=== PATIENT | male | born 1960 | race Caucasian/White ===

== ENCOUNTER 2018-05-27 21:35 | Emergency (ER) | payer MEDICARE, MEDICAID ==
[2018-05-27 23:33] VITALS: BP 128/77
--- NOTE | 2018-05-27 23:55 | EDM.PDOC ---
ED HPI GENERAL MEDICAL PROBLEM - General Chief Complaint: Lower Extremity Injury/Pain Stated Complaint: KNEE HURTS NOT AN ACCIDENT Time Seen by Provider: 05/27/18 23:49 Source of Information: Reports: Patient, Family, RN Notes Reviewed History Limitations: Reports: No Limitations - History of Present Illness INITIAL COMMENTS - FREE TEXT/NARRATIVE: 57-year-old gentleman presents emergency department today complaint of left knee pain, he thinks he may have injured himself when he stood up from the couch and twisted sudden onset of pain now difficult to bear weight, he does have some swelling around the knee no redness Treatments [employer] 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: Reports: Other (see below) 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 - Related Data Allergies Allergy/AdvReac Type Severity Reaction Status Date / Time No Known Allergies Allergy Verified 05/27/18 23:37 Home Meds: Home Meds NK [No Known Home Meds] 05/27/18 [History] Past Medical History Gastrointestinal History: Reports: Other (See Below) Other Gastrointestinal History: ulcers - Infectious Disease History Infectious Disease History: Reports: Chicken Pox - Past Surgical History Musculoskeletal Surgical History: Reports: Other (See Below) Other Musculoskeletal Surgeries/Procedures:: wrist surgery Social & Family History - Tobacco Use Smoking Status *Q: Current Every Day Smoker Years of Tobacco use: 40 Packs/Tins Daily: 1.5 Second Hand Smoke Exposure: Yes - Caffeine Use Caffeine Use: Reports: Coffee - Recreational Drug Use Recreational Drug Use: No Review of Systems - Review of Systems Review Of Systems: See Below Musculoskeletal: Reports: Joint Pain (Left knee) Skin: Reports: No Symptoms ED EXAM, GENERAL - Physical Exam Exam: See Below Free Text/Narrative:: Examination of the left knee I do appreciate some edema around the knee there is no erythema noted he is tender along the medial joint line no lateral joint line tenderness both Sidhu and valgus maneuvers do elicit pain Bi's is negative anterior drawer is negative Exam Limited By: No Limitations General Appearance: Alert, WD/WN, No Apparent Distress Respiratory/Chest: No Respiratory Distress Course - Vital Signs Last Recorded V/S: Last Vital Signs Temp 96.8 F 05/27/18 23:32 Pulse 76 05/27/18 23:32 Resp 18 05/27/18 23:32 BP 128/77 05/27/18 23:32 Pulse Ox 96 02/22/19 23:32 Departure - Departure Time of Disposition: 00:50 Disposition: Home, Self-Care 01 Condition: Fair Clinical Impression: Strain of right knee Qualifiers: Encounter type: initial encounter Qualified Code(s): S86.911A - Strain of unspecified muscle(s) and tendon(s) at lower leg level, right leg, initial encounter - Discharge Information Referrals: PCP,None [Primary Care Provider] - Forms: ED Department Discharge Additional Instructions: Use ibuprofen for baseline pain control, use hydrocodone for breakthrough pain, Please followup with your primary care provider in 3-5 days if not better, please call return to the emergency department with worsening of symptoms. - Assessment/Plan Plan: Assessment Acuity = acute Site and laterality = right knee strain Etiology = probably secondary to twisting injury Manifestations = none Location of injury = Home Lab values = knee x-ray is negative Plan Plan to use Tylenol or ibuprofen as needed for pain control follow-up primary care 3-5 days for reevaluation , prescription written for hydrocodone 5/325 one tablet by mouth 3 times a day when necessary for 10 This note was dictated using [employer] voice recognition software please call with any questions on syntax or grammar.
--- NOTE | 2018-05-28 00:43 | CRLCR ---
Indication: Pain after twisting knee Technique: Four views right knee Comparison: None Findings: Bones: Alignment is normal. No fractures or bone lesions. Joint spaces: Very mild tricompartmental degenerative changes. Soft tissues: Unremarkable. Impression: No acute abnormality. Dictated by Jennifer Leong MD @ May 28 2018 12:39AM Signed by Dr. Jennifer Leong @ May 28 2018 12:41AM
== END 2018-05-28 01:05 | disposition home or self-care (01) ==
LOC: JP.ED 21:35
DX: S86.911A Strain of unspecified muscle(s) and tendon(s) at lower leg level, right leg, initial encounter (principal); F17.210 Nicotine dependence, cigarettes, uncomplicated; X50.1XXA Overexertion from prolonged static or awkward postures, initial encounter
CPT/HCPCS: 73562-RT; 99284

== ENCOUNTER 2020-04-02 15:32 | Emergency (ER) | payer MEDICARE, MEDICAID ==
[2020-04-02] MEDS ORDERED: Albuterol/Ipratropium 3.0-0.5 MG/3 ML Neb Soln NEB ONE (16:09)
[2020-04-02 16:30] VITALS: BP 98/59; PULSE 85
--- NOTE | 2020-04-02 16:32 | EDM.PDOC ---
ED HPI GENERAL MEDICAL PROBLEM - General Chief Complaint: Respiratory Problem Stated Complaint: SHORT OF BREATH Time Seen by Provider: 04/02/20 16:00 Source of Information: Reports: Patient History Limitations: Reports: No Limitations - History of Present Illness INITIAL COMMENTS - FREE TEXT/NARRATIVE: 59-year-old male, chronic smoker with likely COPD, arrives with shortness of breath and cough for the past month. He is also very anxious because he recently lost his to COPD. He claims he stopped smoking 3 weeks ago. He has a persistent productive cough but no fevers or chills. He presents somewhat hyperventilating and anxious, O2 sats are 98 to 100%. He has no pulmonary medications at home. He does not have a primary doctor, in fact he is on no medications at all. Onset: Gradual Duration: Week(s): (4 weeks of symptoms) Location: Reports: Chest Associated Symptoms: Reports: Cough, Malaise, Shortness of Breath. Denies: Fever/Chills, Headaches Right Back Pain Score (Numeric/FACES): 8 - Related Data Allergies Allergy/AdvReac Type Severity Reaction Status Date / Time No Known Allergies Allergy Verified 05/27/18 23:37 Home Meds: Home Meds NK [No Known Home Meds] 05/27/18 [History] Past Medical History Gastrointestinal History: Reports: Other (See Below) Other Gastrointestinal History: ulcers - Infectious Disease History Infectious Disease History: Reports: Chicken Pox - Past Surgical History Musculoskeletal Surgical History: Reports: Other (See Below) Other Musculoskeletal Surgeries/Procedures:: wrist surgery Social & Family History - Tobacco Use Tobacco Use Status *Q: Former Tobacco User Used Tobacco, but Quit: Yes Month/Year Tobacco Last Used: - Caffeine Use Caffeine Use: Reports: Coffee - Recreational Drug Use Recreational Drug Use: Yes Drug Use in Last 12 Months: Yes Recreational Drug Type: Reports: Marijuana/Hashish Recreational Drug Use Frequency: Weekly ED ROS GENERAL - Review of Systems Review Of Systems: See Below Constitutional: Reports: Malaise. Denies: Fever, Chills HEENT: Denies: Throat Pain Respiratory: Reports: Shortness of Breath, Wheezing, Cough, Sputum Cardiovascular: Denies: Chest Pain GI/Abdominal: Reports: Abdominal Pain (Abdominal muscles are hurting from coughing so much) Skin: Reports: No Symptoms Neurological: Reports: Dizziness. Denies: Headache, Weakness Psychiatric: Reports: Anxiety, Depression (Experiencing some reactive depression due to the loss of his ) ED EXAM, GENERAL - Physical Exam Exam: See Below Exam Limited By: No Limitations General Appearance: Alert, Anxious, Mild Distress (Appears short of breath but his vitals are excellent, appears to be hyperventilating) Head: Atraumatic Respiratory/Chest: Respiratory Distress (Mild respiratory distress with increased effort, a few scattered expiratory wheezes are heard bilaterally), Rales (A few perihilar rales are heard, especially on the right posterior lung restrepo) Cardiovascular: Regular Rate, Rhythm. No: Tachycardia Extremities: Normal Inspection. No: Pedal Edema Neurological: Alert, Oriented Psychiatric: Anxious Course - Vital Signs Last Recorded V/S: Last Vital Signs Temp 97.5 F 04/02/20 15:42 Pulse 85 04/02/20 16:29 Resp 22 H 04/02/20 15:42 BP 98/59 L 04/02/20 16:29 Pulse Ox 98 04/02/20 15:42 - Orders/Labs/Meds Orders: Active Orders 24 hr Category Date Time Status Chest 2V [CR] Routine Exams 04/02/20 16:09 Taken Meds: Medications Discontinued Medications Generic Name Dose Route Start Last Admin Trade Name Freq PRN Reason Stop Dose Admin Albuterol/Ipratropium 3 ml 04/02/20 16:09 04/02/20 16:16 Duoneb 3.0-0.5 Mg/3 Ml NEB 04/02/20 16:10 3 ml ONETIME ONE Administration - Re-Assessments/Exams Free Text/Narrative Re-Assessment/Exam: 04/02/20 16:32 Patient was given a DuoNeb and then a 2 view chest x-ray will be obtained. 04/02/20 16:47 Patient had some perceived subjective improvement after the DuoNeb. Chest x-ray shows a right perihilar infiltrate, possibly underlying mass-effect. He will be placed on Levaquin 500 mg daily for the next 10 days, 60 mg of prednisone a day for 5 days and a hand-held albuterol metered-dose inhaler. It is very important for him to recheck in 7 to 14 days, he will need a follow-up chest x- ray and possibly a chest CT especially if not improving satisfactorily. Departure - Departure Time of Disposition: 17:04 Disposition: Home, Self-Care 01 Clinical Impression: Pneumonia involving left lung Qualifiers: Pneumonia type: due to unspecified organism Lung location: unspecified part of lung Qualified Code(s): J18.9 - Pneumonia, unspecified organism - Discharge Information Instructions: Community-Acquired Pneumonia, Adult, [place] Referrals: PCP,None [Primary Care Provider] - Forms: ED Department Discharge Care Plan Goals: Take 6 pills of prednisone with food for 5 consecutive days. Take 1 dose of antibiotic daily for 10 days. Recheck with Jennifer Chaudhary at 3:30 in the afternoon on April 10 for a recheck of your lungs and likely a recheck of your chest x- ray. You may need further evaluation especially if not improving satisfactorily. Return sooner if worsening despite treatment. Sepsis Event Note (ED) - Evaluation Sepsis Screening Result: No Definite Risk - My Orders Last 24 Hours: My Active Orders 04/02/20 16:09 Chest 2V [CR] Routine - Assessment/Plan Last 24 Hours: My Active Orders 04/02/20 16:09 Chest 2V [CR] Routine
--- NOTE | 2020-04-03 09:30 | CR ---
CHEST: 2 view CLINICAL HISTORY:Dyspnea COMPARISON:2014 Limited chest study FINDINGS: There is ill-definition of the right hilum. There is airspace disease in the right middle lobe which may be atelectasis and/or infiltrate. There is a faint 6 mm density in the left perihilar region. There is a similar density in the right upper lobe. Bronchial markings are prominent on the right. IMPRESSION: Fullness in ill-definition of the right hilum. The this may be due to right middle lobe airspace disease. Hilar mass is not excluded. Right middle lobe airspace disease may represent atelectasis and/or pneumonic infiltrate. Small nodular densities bilaterally are described above A short-term follow-up is recommended. If densities persists, a CT chest with contrast should be considered
== END 2020-04-02 17:04 | disposition home or self-care (01) ==
LOC: JP.ED 15:32
DX: J18.9 Pneumonia, unspecified organism (principal); F41.9 Anxiety disorder, unspecified; F32.9 Major depressive disorder, single episode, unspecified; Z87.891 Personal history of nicotine dependence
CPT/HCPCS: 71046; 71046-26; 99285-25; J7620-GY

== ENCOUNTER 2020-04-17 22:17 | Emergency (ER) | payer MEDICARE, MEDICAID ==
--- NOTE | 2020-04-17 22:48 | EDM.PDOC ---
ED HPI GENERAL MEDICAL PROBLEM - General Chief Complaint: Respiratory Problem Stated Complaint: BREATHING TROUBLE Time Seen by Provider: 04/17/20 22:35 Source of Information: Reports: Patient History Limitations: Reports: No Limitations - History of Present Illness INITIAL COMMENTS - FREE TEXT/NARRATIVE: 59-year-old male with persistent shortness of breath for the past couple of weeks. He was seen here in the emergency room 2 weeks ago and had an abnormal chest x-ray, 10 days of Levaquin was given. He still has some persistent shortness of breath, cough, scant whitish sputum but no hemoptysis. He does not feel like the antibiotic helped. He arrived short of breath with O2 saturations 93%. No fevers or chills, no pain. He also claims he has unexplained weight loss. Onset: Gradual Duration: Week(s): (Symptoms for several weeks) Associated Symptoms: Reports: Cough, Malaise, Shortness of Breath Upper Back Pain Score (Numeric/FACES): 4 - Related Data Allergies Allergy/AdvReac Type Severity Reaction Status Date / Time No Known Allergies Allergy Verified 04/17/20 22:30 Home Meds: Home Meds NK [No Known Home Meds] 05/27/18 [History] Past Medical History Gastrointestinal History: Reports: Other (See Below) Other Gastrointestinal History: ulcers Psychiatric History: Reports: Anxiety, Depression - Infectious Disease History Infectious Disease History: Reports: Chicken Pox - Past Surgical History Musculoskeletal Surgical History: Reports: Other (See Below) Other Musculoskeletal Surgeries/Procedures:: wrist surgery Social & Family History - Tobacco Use Tobacco Use Status *Q: Former Tobacco User Used Tobacco, but Quit: Yes Month/Year Tobacco Last Used: 03/2020 - Caffeine Use Caffeine Use: Reports: Coffee - Recreational Drug Use Recreational Drug Use: Yes Recreational Drug Type: Reports: Marijuana/Hashish Recreational Drug Use Frequency: Monthly ED ROS GENERAL - Review of Systems Review Of Systems: See Below Constitutional: Reports: Malaise, Weight Loss. Denies: Fever, Chills HEENT: Reports: No Symptoms Respiratory: Reports: Shortness of Breath, Cough, Sputum. Denies: Hemoptysis Cardiovascular: Denies: Chest Pain GI/Abdominal: Denies: Abdominal Pain, Nausea, Vomiting Musculoskeletal: Reports: Back Pain Skin: Reports: No Symptoms Neurological: Reports: No Symptoms Psychiatric: Reports: Anxiety ED EXAM, GENERAL - Physical Exam Exam: See Below Exam Limited By: No Limitations General Appearance: Alert, Anxious Head: Atraumatic Neck: Supple, Non-Tender Respiratory/Chest: Lungs Clear (Lungs are clear but he has decreased breath sounds in the right upper lobe posteriorly), Respiratory Distress (Patient is displaying mild increased respiratory effort with low O2 sats and 92% on room air) Cardiovascular: Regular Rate, Rhythm, Tachycardia (Mild tachycardia) GI/Abdominal: Non-Tender Extremities: No Pedal Edema Neurological: Alert, Oriented Psychiatric: Anxious Course - Vital Signs Last Recorded V/S: Last Vital Signs Temp 97.0 F 04/17/20 22:46 Pulse 81 04/18/20 00:01 Resp 18 04/18/20 00:01 BP 126/65 04/17/20 22:46 Pulse Ox 93 L 04/18/20 00:01 - Orders/Labs/Meds Labs: Laboratory Tests 04/17/20 04/17/20 Range/Units 22:33 22:33 WBC 12.4 H (4.5-11.0) K/uL RBC 4.79 (4.30-5.90) M/uL Hgb 13.7 (12.0-15.0) g/dL Hct 41.3 (40.0-54.0) % MCV 86 (80-98) fL MCH 29 (27-31) pg MCHC 33 (32-36) % Plt Count 577 H (150-400) K/uL Neut % (Auto) 81 H (36-66) % Lymph % (Auto) 12 L (24-44) % [place] % (Auto) 7 H (2-6) % Eos % (Auto) 0 L (2-4) % Baso % (Auto) 0 (0-1) % Sodium 134 L (140-148) mmol/L Potassium 3.7 (3.6-5.2) mmol/L Chloride 97 L (100-108) mmol/L Carbon Dioxide 22 (21-32) mmol/L Anion Gap 18.7 H (5.0-14.0) mmol/L BUN 32 H D (7-18) mg/dL Creatinine 1.2 (0.8-1.3) mg/dL Est Cr Clr Drug Dosing 71.30 mL/min Estimated GFR (MDRD) > 60 (>60) Glucose 134 H (74-106) mg/dL Calcium 9.0 (8.5-10.1) mg/dL Total Bilirubin 0.2 (0.2-1.0) mg/dL AST 15 (15-37) U/L ALT 20 (12-78) U/L Alkaline Phosphatase 143 H D (46-116) U/L Total Protein 7.6 (6.4-8.2) g/dL Albumin 2.8 L (3.4-5.0) g/dL Globulin 4.8 H (2.3-3.5) g/dL Albumin/Globulin Ratio 0.6 L (1.2-2.2) Meds: Medications Discontinued Medications Generic Name Dose Route Start Last Admin Trade Name Freq PRN Reason Stop Dose Admin Dexamethasone 4 mg 04/18/20 00:33 04/18/20 00:40 Decadron IVPUSH 04/18/20 00:34 4 mg ONETIME ONE Administration Sodium Chloride 75 mls @ 3 mls/sec 04/17/20 23:16 04/17/20 23:24 Normal Saline IV 04/17/20 23:17 3 mls/sec ASDIRECTED STA Administration Sodium Chloride 1,000 mls @ 1,000 mls/hr 04/17/20 23:34 04/17/20 23:37 Normal Saline IV 04/18/20 00:33 1,000 mls/hr .BOLUS ONE Administration Iopamidol 100 ml 04/17/20 23:15 04/17/20 23:23 Isovue-300 (61%) IV 04/17/20 23:16 100 ml . DIRECTED STA Administration - Re-Assessments/Exams Free Text/Narrative Re-Assessment/Exam: 04/18/20 00:14 Patient was prepared for CT of the chest with IV contrast. CBC and CMP was obtained, his kidney function is good so CT was ordered. 04/18/20 00:15 White count is 12,400, hemoglobin is normal. Anion gap is elevated as well as alk phos and BUN, unsure of the significance. CT result is pending, there are some obvious right lung abnormalities present. 04/18/20 00:35 IMPRESSION: Spiculated mass in the right hilum with obstructive atelectasis of the right middle lobe. The mass also obstructs the right middle lobe bronchus and right pulmonary arterial branches. Second, smaller spiculated mass in the right upper lobe. Innumerable bilateral pulmonary nodules measuring up to 8 mm in size. Right paratracheal adenopathy. Possible lymphangitic spread within the right upper lobe. Extensive lytic and sclerotic bone lesions throughout the spine. Findings are consistent with lung cancer with extensive metastatic disease. Large lytic lesion in the T2 vertebrae putting this vertebral body at risk for pathologic fracture. Also consider MR of the spine to evaluate for any intraspinal involvement. Departure - Departure Time of Disposition: 00:46 Disposition: Home, Self-Care 01 Clinical Impression: Metastatic primary lung cancer Qualifiers: Laterality: right Qualified Code(s): C34.91 - Malignant neoplasm of unspecified part of right bronchus or lung - Discharge Information Instructions: Lung Cancer Referrals: Jennifer Chaudhary MD [Primary Care Provider] - Forms: ED Department Discharge Care Plan Goals: You need to follow-up with specialist at [facility] for further treatment and assessment. They are planning on calling you tomorrow, if you do not hear from them by tomorrow afternoon after 2:00, call [phone] to make an appointment.
[2020-04-17 22:49] VITALS: BP 126/65
[2020-04-17] MEDS ORDERED: Iopamidol 612 MG/ML 100 ML Bottle IV STA (23:15)
[2020-04-17] MEDS ORDERED: Sodium Chloride 0.9% 75 ML IV STA (23:16)
[2020-04-17] MEDS ORDERED: Sodium Chloride 0.9% 1,000 ML IV ONE (23:34)
[2020-04-18 00:01] VITALS: PULSE 81
--- NOTE | 2020-04-18 00:27 | CRLCT ---
INDICATION: Hypoxia, abnormal chest radiograph TECHNIQUE: CT chest was acquired with 100 cc Isovue-300 IV contrast. COMPARISON: Chest radiograph April 02, 2020 FINDINGS: Cardiovascular structures: Heart size is normal. Thoracic aorta and main pulmonary artery are normal in caliber. Mediastinum and jojo: Right paratracheal adenopathy measuring 1.0 cm in diameter. Lungs: Spiculated 3.7 x 3.0 cm mass in the right hilum with obstructive atelectasis of the right middle lobe. The mass also obstructs the right middle lobe bronchus and pulmonary arterial branches to the right middle lobe. Innumerable pulmonary nodules throughout the lungs measuring up to 8 mm in size. There is also a second spiculated mass in the right upper lobe measuring 2.2 x 1.6 x 2.1 cm. There is some thickening of the interlobular septa in the right upper lobe. Pleura and pericardium: No effusions. Chest wall and axilla: No mass or adenopathy. Upper abdomen: 1.2 cm left adrenal gland nodule measuring 64 Hounsfield units and density. Bones: Mixed lytic and sclerotic lesion in the posterior left 5th rib. Sclerotic lesion in the right posterior 6th rib. Mixed lytic and sclerotic lesions throughout every thoracic vertebral body and the L1 and L2 vertebrae. Large lytic lesion in the T2 vertebrae measures 2.1 x 1.4 cm. IMPRESSION: Spiculated mass in the right hilum with obstructive atelectasis of the right middle lobe. The mass also obstructs the right middle lobe bronchus and right pulmonary arterial branches. Second, smaller spiculated mass in the right upper lobe. Innumerable bilateral pulmonary nodules measuring up to 8 mm in size. Right paratracheal adenopathy. Possible lymphangitic spread within the right upper lobe. Extensive lytic and sclerotic bone lesions throughout the spine. Findings are consistent with lung cancer with extensive metastatic disease. Large lytic lesion in the T2 vertebrae putting this vertebral body at risk for pathologic fracture. Also consider MR of the spine to evaluate for any intraspinal involvement. Findings discussed with Dr. Schneider at 12:17 a.m. on April 18, 2020. Please note that all CT scans at this facility use dose modulation, iterative reconstruction, and/or weight-based dosing when appropriate to reduce radiation dose to as low as reasonably achievable. Dictated by Jennifer Leong MD @ Apr 18 2020 12:26AM Signed by Dr. Jennifer Leong @ Apr 18 2020 12:26AM
[2020-04-18] MEDS ORDERED: Dexamethasone 4 MG/ML SDV IVPUSH ONE (00:33)
== END 2020-04-18 00:46 | disposition home or self-care (01) ==
LOC: JP.ED 22:17
DX: C34.91 Malignant neoplasm of unspecified part of right bronchus or lung (principal); Z87.891 Personal history of nicotine dependence
CPT/HCPCS: 36415; 71260; 80053; 85025; 96374; 99285; J1100; J7030; Q9967

== ENCOUNTER 2020-06-05 16:01 | Emergency (ER) | payer MEDICARE, MEDICAID ==
[2020-06-05] MEDS ORDERED: Adenosine 6 MG/2 ML SDV IVPUSH ONE ×2 (16:11)
--- NOTE | 2020-06-05 16:13 | EDM.PDOC ---
ED HPI GENERAL MEDICAL PROBLEM - General Chief Complaint: Cardiovascular Problem Stated Complaint: HEART TROUBLE Time Seen by Provider: 06/05/20 16:08 Source of Information: Reports: Patient, Provider (Dr. Rich), RN Notes Reviewed History Limitations: Reports: No Limitations - History of Present Illness INITIAL COMMENTS - FREE TEXT/NARRATIVE: 59-year-old gentleman presents emergency department today for evaluation of heart rate, he was initially in the clinic to review his PET scan which he is undergoing for lung cancer. At that time he was extremely tachycardic and short of breath EKG shows SVT at around 185 sent to the emergency department for further evaluation. He states that he has been in this for 1 week did not know any better has been short of breath has had some chest discomfort no nausea vomiting no diaphoresis Anterior Chest Pain Score (Numeric/FACES): 8 - Related Data Allergies Allergy/AdvReac Type Severity Reaction Status Date / Time No Known Allergies Allergy Verified 06/05/20 16:08 Home Meds: Home Meds Metoprolol Tartrate [Lopressor] 25 mg PO BEDTIME #30 tab 06/05/20 [Rx] Past Medical History Cardiovascular History: Reports: Arrhythmia (SVT) Gastrointestinal History: Reports: Other (See Below) Other Gastrointestinal History: ulcers Psychiatric History: Reports: Anxiety, Depression Oncologic (Cancer) History: Reports: Lung - Infectious Disease History Infectious Disease History: Reports: Chicken Pox - Past Surgical History Musculoskeletal Surgical History: Reports: Other (See Below) Other Musculoskeletal Surgeries/Procedures:: wrist surgery Social & Family History - Tobacco Use Tobacco Use Status *Q: Current Every Day Tobacco User - Caffeine Use Caffeine Use: Reports: Coffee ED ROS GENERAL - Review of Systems Review Of Systems: See Below Constitutional: Reports: No Symptoms HEENT: Reports: No Symptoms Respiratory: Reports: Shortness of Breath Cardiovascular: Reports: Chest Pain, Dyspnea on Exertion, Palpitations GI/Abdominal: Reports: No Symptoms ED EXAM, GENERAL - Physical Exam Exam: See Below Exam Limited By: No Limitations General Appearance: Alert, Mild Distress Respiratory/Chest: No Respiratory Distress, Lungs Clear, Normal Breath Sounds, No Accessory Muscle Use, Chest Non-Tender Cardiovascular: Tachycardia GI/Abdominal: Soft, Non-Tender #1 Interpretation EKG Date: 06/05/20 Rhythm: Other (SVT) Rate (Beats/Min): 25 [place]: Normal P-Wave: Absent QRS: Normal ST-T: Elevated Comparison: Change From Previous EKG #2 Interpretation EKG Date: 06/05/20 Rhythm: NSR [place]: Normal P-Wave: Present QRS: Normal ST-T: Normal QT: Normal Comparison: Change From Previous EKG Course - Vital Signs Last Recorded V/S: Last Vital Signs Temp 97.8 F 06/05/20 16:35 Pulse 95 06/05/20 16:55 Resp 21 H 06/05/20 16:55 BP 102/65 06/05/20 16:55 Pulse Ox 96 06/05/20 16:55 - Orders/Labs/Meds Orders: Active Orders 24 hr Category Date Time Status Cardiac Monitoring [RC] .As Directed Care 06/05/20 16:09 Active EKG Documentation Completion [RC] ASDIRECTED Care 06/05/20 16:23 Active Peripheral IV Care [RC] . DIRECTED Care 06/05/20 16:10 Active Chest 1V Frontal [CR] Stat Exams 06/05/20 16:10 Taken Sodium Chloride 0.9% [Saline Flush] Med 06/05/20 16:09 Active 10 ml FLUSH ASDIRECTED PRN Peripheral IV Insertion Adult [OM.PC] Stat Oth 06/05/20 16:09 Ordered Saline Lock Insert [OM.PC] Stat Oth 06/05/20 16:09 Ordered EKG 12 Lead [EK] Stat Ther 06/05/20 16:23 Ordered Medication Orders Sodium Chloride (Saline Flush) 10 ml FLUSH ASDIRECTED PRN PRN Reason: Keep Vein Open Last Admin: 06/05/20 16:27 Dose: 10 ml Documented by: Admin: 06/05/20 16:16 Dose: 10 ml Documented by: KAYLIN Labs: Laboratory Tests 06/05/20 06/05/20 06/05/20 Range/Units 16:15 16:15 16:15 WBC 10.9 (4.5-11.0) K/uL RBC 4.65 (4.30-5.90) M/uL Hgb 13.4 (12.0-15.0) g/dL Hct 40.6 (40.0-54.0) % MCV 87 (80-98) fL MCH 29 (27-31) pg MCHC 33 (32-36) % Plt Count 693 H (150-400) K/uL Neut % (Auto) 70 H (36-66) % Lymph % (Auto) 20 L (24-44) % [place] % (Auto) 8 H (2-6) % Eos % (Auto) 1 L (2-4) % Baso % (Auto) 0 (0-1) % PT 11.1 (9.5-12.0) sec INR 1.02 (0.80-1.20) APTT 27.9 (27.0-36.0) sec Sodium 135 L (140-148) mmol/L Potassium 4.1 (3.6-5.2) mmol/L Chloride 99 L (100-108) mmol/L Carbon Dioxide 25 (21-32) mmol/L Anion Gap 15.1 H (5.0-14.0) mmol/L BUN 27 H (7-18) mg/dL Creatinine 1.0 (0.8-1.3) mg/dL Est Cr Clr Drug Dosing 80.00 mL/min Estimated GFR (MDRD) > 60 (>60) Glucose 103 (74-106) mg/dL Lactic Acid (0.4-2.0) mmol/L Calcium 10.4 H D (8.5-10.1) mg/dL Total Bilirubin 0.2 (0.2-1.0) mg/dL AST 27 D (15-37) U/L ALT 18 (12-78) U/L Alkaline Phosphatase 222 H (46-116) U/L Troponin I < 0.017 (0.000-0.056) ng/mL Total Protein 8.2 (6.4-8.2) g/dL Albumin 3.3 L (3.4-5.0) g/dL Globulin 4.9 H (2.3-3.5) g/dL Albumin/Globulin Ratio 0.7 L (1.2-2.2) 06/05/20 Range/Units 16:15 WBC (4.5-11.0) K/uL RBC (4.30-5.90) M/uL Hgb (12.0-15.0) g/dL Hct (40.0-54.0) % MCV (80-98) fL MCH (27-31) pg MCHC (32-36) % Plt Count (150-400) K/uL Neut % (Auto) (36-66) % Lymph % (Auto) (24-44) % [place] % (Auto) (2-6) % Eos % (Auto) (2-4) % Baso % (Auto) (0-1) % PT (9.5-12.0) sec INR (0.80-1.20) APTT (27.0-36.0) sec Sodium (140-148) mmol/L Potassium (3.6-5.2) mmol/L Chloride (100-108) mmol/L Carbon Dioxide (21-32) mmol/L Anion Gap (5.0-14.0) mmol/L BUN (7-18) mg/dL Creatinine (0.8-1.3) mg/dL Est Cr Clr Drug Dosing mL/min Estimated GFR (MDRD) (>60) Glucose (74-106) mg/dL Lactic Acid 1.5 (0.4-2.0) mmol/L Calcium (8.5-10.1) mg/dL Total Bilirubin (0.2-1.0) mg/dL AST (15-37) U/L ALT (12-78) U/L Alkaline Phosphatase (46-116) U/L Troponin I (0.000-0.056) ng/mL Total Protein (6.4-8.2) g/dL Albumin (3.4-5.0) g/dL Globulin (2.3-3.5) g/dL Albumin/Globulin Ratio (1.2-2.2) Meds: Medications Generic Name Dose Route Start Last Admin Trade Name Freq PRN Reason Stop Dose Admin Sodium Chloride 10 ml 06/05/20 16:09 06/05/20 16:27 Saline Flush FLUSH 10 ml ASDIRECTED PRN Administration Keep Vein Open Discontinued Medications Generic Name Dose Route Start Last Admin Trade Name Freq PRN Reason Stop Dose Admin Acetaminophen/Codeine Phosphate 2 tab 06/05/20 17:13 Tylenol With Codeine No.3 300mg/30mg PO 06/05/20 17:14 ONETIME ONE Adenosine 6 mg 06/05/20 16:11 06/05/20 16:22 Adenocard IVPUSH 06/05/20 16:12 6 mg NOW ONE Administration Adenosine 12 mg 06/05/20 16:11 06/05/20 17:06 Adenocard IVPUSH 06/05/20 16:12 Not Given NOW ONE Metoprolol Tartrate 25 mg 06/05/20 17:18 Lopressor PO 06/05/20 17:19 ONETIME ONE - Re-Assessments/Exams Free Text/Narrative Re-Assessment/Exam: 06/05/20 16:32 Converted to a sinus rhythm with 6 mg adenosine IV push Departure - Departure Time of Disposition: 17:22 Disposition: Home, Self-Care 01 Condition: Fair Clinical Impression: SVT (supraventricular tachycardia) Prescriptions: Metoprolol Tartrate [Lopressor] 25 mg PO BEDTIME #30 tab Instructions: Supraventricular Tachycardia, Adult Referrals: Jennifer Chaudhary MD [Primary Care Provider] - Forms: ED Department Discharge Additional Instructions: Start your metoprolol tonight 25 mg before you go to bed, recommend start this medication tomorrow your medications have been faxed to [facility], please call the clinic in the morning to reschedule your lung biopsy Sepsis Event Note (ED) - Focused Exam Vital Signs: Vital Signs Temp Pulse Resp BP Pulse Ox 06/05/20 16:55 95 21 H 102/65 96 06/05/20 16:35 97.8 F 180 H 36 H 121/80 98 06/05/20 16:13 180 H 36 H 121/80 98 06/05/20 16:08 97.8 F 184 H 36 H 116/81 98 - My Orders Last 24 Hours: My Active Orders 06/05/20 16:09 Cardiac Monitoring [RC] .As Directed Sodium Chloride 0.9% [Saline Flush] 10 ml FLUSH ASDIRECTED PRN Peripheral IV Insertion Adult [OM.PC] Stat Saline Lock Insert [OM.PC] Stat 06/05/20 16:10 Peripheral IV Care [RC] . DIRECTED Chest 1V Frontal [CR] Stat 06/05/20 16:23 EKG Documentation Completion [RC] ASDIRECTED EKG 12 Lead [EK] Stat - Assessment/Plan Last 24 Hours: My Active Orders 06/05/20 16:09 Cardiac Monitoring [RC] .As Directed Sodium Chloride 0.9% [Saline Flush] 10 ml FLUSH ASDIRECTED PRN Peripheral IV Insertion Adult [OM.PC] Stat Saline Lock Insert [OM.PC] Stat 06/05/20 16:10 Peripheral IV Care [RC] . DIRECTED Chest 1V Frontal [CR] Stat 06/05/20 16:23 EKG Documentation Completion [RC] ASDIRECTED EKG 12 Lead [EK] Stat Plan: Assessment Acuity = acute Site and laterality = SVT Etiology = unknown probably related to lung cancer Manifestations = dyspnea now improved Location of injury = Home Lab values = CBC INR CMP unremarkable troponin was negative chest x-ray shows no acute process initial EKG revealed an SVT second EKG reveals a sinus rhythm no ST elevations or depressions Plan Elected to start him on metoprolol 25 mg p.o. nightly he is going to contact the clinic in the morning to reschedule his lung biopsy This note was dictated using [employer] voice recognition software please call with any questions on syntax or grammar.
[2020-06-05] MEDS: Sodium Chloride 0.9% 10 ML Syringe FLUSH PRN ×2 (16:16→16:27)
[2020-06-05] MEDS ORDERED: Acetaminophen/Codeine 300-30 MG Tab PO ONE (17:13)
[2020-06-05] MEDS ORDERED: Metoprolol Tartrate 25 MG Tab PO ONE (17:18)
[2020-06-05 17:32] VITALS: PULSE 85
[2020-06-05 17:38] VITALS: BP 108/79
--- NOTE | 2020-06-06 09:17 | CR ---
CHEST: Portable 06/05/2020 at 4:46 PM CLINICAL HISTORY:Chest pain COMPARISON:CT 05/27/2020 FINDINGS: Patient is a large right hilar mass and some peripheral infiltrate in the right upper lobe. There is some patchy infiltrate in the left mid and lower lung field. There is a irregular nodular density in the right apex. Heart size and pulmonary vascularity are normal. IMPRESSION: Large right hilar mass with peripheral infiltrate in the right upper lobe. There is also a nodular opacity in the right apex. This is also seen on earlier PET/CT. Mild patchy infiltrate-like density in the left mid-lower lung field
== END 2020-06-05 17:39 | disposition home or self-care (01) ==
LOC: JP.ED 16:01
DX: I47.1 Supraventricular tachycardia (principal); Z79.899 Other long term (current) drug therapy; Z72.0 Tobacco use
CPT/HCPCS: 36415; 71045; 80053; 83605; 84484; 85025; 85610; 85730; 93005; 96374; 99285; A9270; J0153

== ENCOUNTER 2020-07-12 12:50 | Observation (INO) | payer MEDICARE, MEDICAID ==
[2020-07-12] MEDS ORDERED: Albuterol 0.083% 2.5 MG/3 ML Neb Soln NEB PRN (13:50)
[2020-07-12] MEDS ORDERED: HYDROmorphone 1 MG/ML Syringe IVPUSH PRN (13:50)
[2020-07-12] MEDS ORDERED: Ketorolac 30 MG/ML SDV IVPUSH PRN (13:50)
[2020-07-12] MEDS ORDERED: Ondansetron 4 MG/2 ML SDV IV PRN (13:50)
[2020-07-12] MEDS ORDERED: Ondansetron 4 MG Tab.DIS PO PRN (13:50)
[2020-07-12] MEDS ORDERED: Melatonin 3 MG Tab PO PRN (13:50)
[2020-07-12] MEDS ORDERED: Magnesium Hydroxide 400 MG/5 ML Susp 30 ML Cup PO PRN (13:50)
[2020-07-12] MEDS ORDERED: LORazepam 2 MG/ML SDV IVPUSH PRN (13:50)
--- NOTE | 2020-07-12 13:58 | PCM.HP.2 ---
H&P History of Present Illness - General Date of Service: 07/12/20 Admit Problem/Dx: Admission Diagnosis/Problem Admission Diagnosis/Problem Back pain Source of Information: Patient, Provider History Limitations: Reports: No Limitations - History of Present Illness Initial Comments - Free Text/Narative: CC: I've lost so much weight HPI: Wojciech initially presented to the clinic for follow-up of a right lung mass. He was found to have a sodium of 129 and was weak. He does not have a tissue diagnosis of his lung cancer as of yet so he was sent to the hospital for expedited work-up. He reports a 25 pound weight loss over the past month and additional weight prior to that. He does not have significant shortness of breath at this time. No fevers. Cough is intermittent and does have some thick, sticky sputum but no blood. Appetite has been good and he reports that he has been eating well but has been losing weight despite this. No chest pain. No abdominal pain or nausea. He does report moderate to moderately severe pain in the middle of his back, slightly more on the left. Pain is worse with movement. This is a sharp pain with an achy component. He has been using Tylenol with codeine that no longer provide any relief. The pain has steadily been getting worse. He has starting to feel depressed because of the progression of his disease. He does report some fleeting suicidal ideations but does not feel suicidal and has no plan to hurt himself. Patient has a right lung mass in the hilar region as well as a right upper lobe mass. He had a recent PET scan that showed diffuse skeletal metastases as well as increased metabolism in the hilar mass and this is likely the primary. He has not been able to make appointments for previous work-up because of transportation issues. - Related Data Allergies/Adverse Reactions: Allergies Allergy/AdvReac Type Severity Reaction Status Date / Time cortisone AdvReac Nausea and Verified 07/12/20 13:21 Vomiting Home Medications: Home Meds Acetaminophen with Codeine [Acetaminophen-Cod #3] 2 each PO Q4HR PRN 06/26/20 [History] Albuterol Sulfate [Albuterol Sulfate Hfa] 1 - 2 puff IH Q4HR PRN 06/26/20 [History] Umeclidinium [place] [Incruse Ellipta*] 1 puff IH DAILY 06/26/20 [History] Metoprolol Tartrate [Lopressor] 25 mg PO BEDTIME 07/12/20 [History] Past Medical History Cardiovascular History: Reports: Arrhythmia Respiratory History: Reports: Other (See Below) Other Respiratory History: l lung tumor. Gastrointestinal History: Reports: Other (See Below) Other Gastrointestinal History: ulcers Neurological History: Reports: Concussion Psychiatric History: Reports: Anxiety, Depression Oncologic (Cancer) History: Reports: Bone, Lung - Infectious Disease History Infectious Disease History: Reports: Chicken Pox, Measles, Mumps - Past Surgical History Musculoskeletal Surgical History: Reports: Shoulder Surgery, Other (See Below) Other Musculoskeletal Surgeries/Procedures:: wrist surgery Social & Family History - Family History Family Medical History: No Pertinent Family History - Tobacco Use Tobacco Use Status *Q: Former Tobacco User Years of Tobacco use: 40 Packs/Tins Daily: 1 Used Tobacco, but Quit: Yes Month/Year Tobacco Last Used: 4 months ago - Caffeine Use Caffeine Use: Reports: Coffee - Alcohol Use Alcohol Use History: No - Recreational Drug Use Recreational Drug Use: No H&P Review of Systems - Review of Systems: Review Of Systems: See Below Free Text/Narrative: A complete 12 point review of systems was obtained. Pertinent positives and negatives are noted in the history of present illness. All other systems were reviewed and were negative except as noted. Exam - Exam Exam: See Below - Vital Signs Vital Signs: Last Vital Signs Temp 36.1 C 07/12/20 13:00 Pulse 76 07/12/20 13:00 Resp 20 07/12/20 13:00 BP 102/56 L 07/12/20 13:00 Pulse Ox 92 L 07/12/20 13:00 Weight: 62 kg - Exam Quality Assessment: No: Supplemental Oxygen General: Alert, Oriented, Cooperative, Mild Distress HEENT: Conjunctiva Clear, Mucosa Moist & [place]. No: Scleral Icterus Neck: Supple, Trachea Midline Lungs: Clear to Auscultation, Normal Respiratory Effort, Decreased Breath Sounds (Mildly decreased in the right midlung region) Cardiovascular: Regular Rate, Regular Rhythm. No: Systolic Murmur GI/Abdominal Exam: Normal Bowel Sounds, Soft, Non-Tender, No Distention Back Exam: Normal Inspection, Full Range of Motion, Paraspinal Tenderness (Mid thoracic region on the left), Vertebral Tenderness (Mid thoracic region) Extremities: No Pedal Edema. No: Increased Warmth Peripheral Pulses: 2+: Dorsalis Pedis (L), Dorsalis Pedis (R) Skin: Warm, Dry Neuro Extensive - Mental Status: Alert, Oriented x3, Nl Response to Commands Neuro Extensive - Motor, Sensory, Reflexes: No: Dysarthria, Abnormal Motor, Tremor Psychiatric: Alert, Normal Affect - Patient Data Imaging Impressions Last 24 hrs: Recent PET scan report reviewed, images are not available-increased metabolism in the right hilar mass as well as diffuse skeletal uptake concerning for widespread bony metastatic disease. Also some increased metabolism and lymph nodes in the neck. Sepsis Event Note - Focused Exam Vital Signs: Vital Signs Temp Pulse Resp BP Pulse Ox 07/12/20 13:00 36.1 C 76 20 102/56 L 92 L *Q Meaningful Use (ADM) - VTE Risk Assess *Q Each Risk Factor Represents 1 Point: Abnormal Pulmonary Function (COPD) Total Score 1 Point Risk Factors: 1 Each Risk Factor Represents 2 Points: Age 60 - 74 Years, Malignancy (present or previous) Total Score 2 Point Risk Factors: 4 Each Risk Factor Represents 3 Points: None Total Score 3 Point Risk Factors: 0 Each Risk Factor Represents 5 Points: None Total Score 5 Point Risk Factors: 0 Venous Thromboembolism Risk Factor Score *Q: 5 - Problem List (1) Metastatic primary lung cancer SNOMED Code(s): 69803715, 636561644 ICD Code: C34.90 - MALIGNANT NEOPLASM OF UNSP PART OF UNSP BRONCHUS OR LUNG Status: Chronic Current Visit: No Qualifiers: Laterality: right Qualified Code(s): C34.91 - Malignant neoplasm of unspecified part of right bronchus or lung (2) Bone metastasis Status: Acute Current Visit: No (3) Hyponatremia SNOMED Code(s): 79836008 ICD Code: E87.1 - HYPO-OSMOLALITY AND HYPONATREMIA Status: Acute Current Visit: Yes Problem List Initiated/Reviewed/Updated: Yes Orders Last 24hrs: Active Orders 24 hr Category Date Time Status Patient Status [ADT] Routine ADT 07/12/20 13:50 Ordered Intake and Output [RC] QSHIFT Care 07/12/20 13:50 Ordered Notify Provider Consults [RC] ASDIRECTED Care 07/12/20 13:57 Ordered Notify Provider Vital Signs [RC] ASDIRECTED Care 07/12/20 13:50 Ordered Oxygen Therapy [RC] PRN Care 07/12/20 13:50 Ordered RT Aerosol Therapy [RC] ASDIRECTED Care 07/12/20 13:53 Ordered Up ad Melisa [RC] ASDIRECTED Care 07/12/20 13:50 Ordered VTE/DVT Education [RC] Per Unit Routine Care 07/12/20 13:50 Ordered Vital Signs [RC] Q4H Care 07/12/20 13:50 Ordered Consult to Physician [CONS] Routine Cons 07/12/20 13:56 Ordered NPO After Midnight [Nothing per Oral After Midnight Diet 07/12/20 Dinner Ordered Diet] [DIET] Regular Diet [DIET] Diet 07/12/20 Dinner Ordered BASIC METABOLIC PANEL,BMP [CHEM] AM Lab 07/13/20 05:11 Ordered CBC W/O DIFF,HEMOGRAM [HEME] AM Lab 07/13/20 05:11 Ordered COVID-19/FLU A+B/RSV [MOLEC] Routine Lab 07/12/20 13:55 Ordered Acetaminophen [TylenoL] Med 07/12/20 13:50 Ordered 650 mg PO Q4H PRN Albuterol [Proventil Neb Soln] Med 07/12/20 13:50 Ordered 2.5 mg NEB Q4H PRN Docusate Sodium/Sennosides [Senna Plus] Med 07/12/20 13:50 Ordered 1 tab PO BID PRN Enoxaparin [Lovenox] Med 07/12/20 14:00 Ordered 40 mg SUBCUT Q24H HYDROmorphone [Dilaudid] Med 07/12/20 13:50 Ordered 1 mg IVPUSH Q2H PRN Ketorolac [Toradol] Med 07/12/20 13:50 Ordered 30 mg IVPUSH Q6H PRN LORazepam [Ativan] Med 07/12/20 13:50 Ordered 0.5 mg IVPUSH Q4H PRN Magnesium Hydroxide [Milk of Magnesia] Med 07/12/20 13:50 Ordered 30 ml PO Q12H PRN Melatonin Med 07/12/20 13:50 Ordered 9 mg PO BEDTIME PRN Metoprolol Tartrate [Lopressor] Med 07/12/20 21:00 Ordered 25 mg PO BEDTIME Ondansetron [Zofran ODT] Med 07/12/20 13:50 Ordered 4 mg PO Q6H PRN Ondansetron [Zofran] Med 07/12/20 13:50 Ordered 4 mg IV Q6H PRN Sodium Chloride 0.9% @ 125 MLS/HR (1000ml) Med 07/12/20 14:00 Ordered Sodium Chloride 0.9% [Normal Saline] 1,000 ml IV ASDIRECTED Umeclidinium [place] [Incruse Ellipta*] Med 07/13/20 09:00 Ordered 1 puff IH DAILY oxyCODONE Med 07/12/20 13:48 Ordered 5 - 10 mg PO Q4H PRN Resuscitation Status Routine Resus Stat 07/12/20 13:50 Ordered Medication Orders Oxycodone HCl (Oxycodone 5 Mg Tab) 5 - 10 mg PO Q4H PRN PRN Reason: Pain Assessment/Plan Comment:: ASSESSMENT AND PLAN - Right lung cancer with diffuse bony metastasis-no tissue diagnosis as of yet. Patient has had significant weight loss and increasing fatigue as well as depression. He was admitted for management of the hyponatremia as well as expedited work-up. He has not had any oncology follow-up as of yet because of the lack of tissue diagnosis. He has significant pain because of the bony metastases. -Pain control, initiating oxycodone -Bronchoscopy in the morning -Outpatient oncology follow-up once pathology is available Hyponatremia-he appears well-hydrated so this could be related to the malignancy. -Repeat labs in the morning COPD-stable. Tobacco dependence- -encourage cessation Maintenance issues - -DVT prophylaxis-mechanical -GI prophylaxis-not indicated -Nutrition-regular -Currie catheter-not indicated CODE STATUS -full code Admission justification -this patient will be admitted to observation status for expedited work-up and pain control Disposition -I anticipate discharge home after the hospital stay Primary care physician -Dr. Jennifer Phillips M.D. - Mortality Measure Prognosis:: Poor
[2020-07-12] MEDS: Sodium Chloride 0.9% 1,000 ML IV SCH (14:48)
[2020-07-12] MEDS ORDERED: Enoxaparin 40 MG/0.4 ML Syringe SUBCUT SCH (16:00)
[2020-07-12 16:06] LABS: CORONAVIRUS COVID-19 NAA NEGATIVE (NEGATIVE)
[2020-07-12] MEDS: Acetaminophen 325 MG Tab PO PRN (20:49)
[2020-07-12] MEDS: oxyCODONE 5 MG Tab PO PRN (20:50)
[2020-07-12] MEDS ORDERED: Metoprolol Tartrate 25 MG Tab PO SCH (21:00)
[2020-07-13] MEDS: oxyCODONE 5 MG Tab PO PRN ×3 (00:57→12:04)
[2020-07-13] MEDS: Acetaminophen 325 MG Tab PO PRN ×3 (00:57→12:04)
[2020-07-13] MEDS: Sodium Chloride 0.9% 1,000 ML IV SCH ×2 (02:46→06:49)
[2020-07-13] MEDS ORDERED: Potassium Chloride 20 MEQ in Premix Bag 1 BAG IV ONE (06:24)
[2020-07-13] MEDS ORDERED: Tiotropium Bromide 4 GM Inhalation Spray (2.5mcg/1 dose; 10 doses) INH SCH (07:00)
[2020-07-13] MEDS ORDERED: Lidocaine 4% Top Soln 50 ML Bottle ONE (08:26)
[2020-07-13] MEDS ORDERED: Potassium Chloride 20 MEQ Tab.ER PO SCH (08:30)
[2020-07-13] MEDS ORDERED: Propofol 200 MG/20 ML SDV ONE (08:33)
[2020-07-13] MEDS ORDERED: Midazolam 1 MG/ML 2 ML SDV ONE (08:33)
[2020-07-13] MEDS ORDERED: fentaNYL 100 MCG/2 ML SDV ONE (08:33)
[2020-07-13] MEDS ORDERED: Lidocaine 4% Top Soln LTA 4 ML Syringe Kit ONE (08:36)
[2020-07-13 11:36] VITALS: BP 108/75; PULSE 66
--- NOTE | 2020-07-13 12:59 | PCM.DCSUM1 ---
Discharge Summary - Hospital Course Brief History: 59-year-old male with history of tobacco dependence and right lung mass who was admitted for expedited work-up of the right lung mass as well as management of hyponatremia. Diagnosis: Stroke: No - Discharge Data Discharge Date: 07/13/20 Discharge Disposition: Home, Self-Care 01 Condition: Fair - Referral to Home Health Primary Care Physician: Jennifer Chaudhary MD - Discharge Diagnosis/Problem(s) (1) Metastatic primary lung cancer SNOMED Code(s): 72001797, 312811001 ICD Code: C34.90 - MALIGNANT NEOPLASM OF UNSP PART OF UNSP BRONCHUS OR LUNG Status: Chronic Current Visit: No Qualifiers: Laterality: right Qualified Code(s): C34.91 - Malignant neoplasm of unspecified part of right bronchus or lung (2) Bone metastasis Status: Acute Current Visit: No (3) Hyponatremia SNOMED Code(s): 59270471 ICD Code: E87.1 - HYPO-OSMOLALITY AND HYPONATREMIA Status: Acute Current Visit: Yes - Patient Summary/Data Consults: Consultations 07/12/20 13:56 Consult to Physician [CONS] Routine Consulting Provider: Dima Thomas Call Completed to Consulting Physician: Yes Reason for Consult: right hilar mass Person Notified: RW Date Notified: 07/12/20 Special Instructions: bronch in the am Hospital Course: Wojciech was sent from the clinic for direct admission and expedited work-up of a right lung mass as well as weakness and hyponatremia. He has been unable to make it to the clinic for planned follow-up to further evaluate a right hilar mass. In the clinic he was noted to have hyponatremia with a sodium of 129. The patient feels weak as well as endorsing severe mid back pain with known widely metastatic disease. He was admitted for observation with hydration, pain control and surgical consultation for bronchoscopy. We started him on oxycodone and achieved good control of his back pain. He had been on Tylenol with codeine but this was insufficient to cover his pain. He reports excellent pain control with the transition to oxycodone. Regarding the low sodium, we gave him some normal saline and his sodium level normalized. For the right lung mass I consult to Dr. Isidro. The morning after admission he performed a bronchoscopy and did obtain multiple biopsies of the right hilar mass. Bronchial washings were also obtained for culture and cytology. The patient has done well since the bronchoscopy. He feels that his pain is under excellent control and is hoping to go home. His pathology will be pending for multiple da ys so I believe it is safe for him to be discharged home with outpatient follow- up. He reports that he will be calling first thing Wednesday morning to schedule his follow-up appointment. During the hospital stay the patient did endorse feeling down and depressed because of the recent loss of his as well as his current medical problems. He did report some fleeting thoughts of harm but has no ongoing interest of harming himself or others. I believe he is safe and does not need further evaluation at this moment. He may be a candidate for some outpatient psychiatric follow-up given the multiple stressors recently as well as his medical problems. - Patient Instructions Diet: Regular Diet as Tolerated Activity: As Tolerated Driving: Do Not Drive (if taking pain pills ) Notify Provider of: Fever, Increased Pain Other/Special Instructions: 1. You were in the hospital for further evaluation of the right lung cancer and management of back pain. We have obtained samples from the right lung mass and they will be sent for pathology. Results should be available by the end of the week. It is important to follow-up with Dr. Jennifer Chaudhary at the end of the week to get these results and obtain the appropriate referral to consider treatment for lung cancer. Your back pain has been improving with the use of oxycodone. You may use 5 mg every 4 hours as needed for moderate pain. You could consider acetaminophen or ibuprofen for mild pain. 2. Please seek medical attention if you have severe pain, sudden onset of significant shortness of breath or if you have chest pain. - Discharge Plan *PRESCRIPTION DRUG MONITORING PROGRAM REVIEWED*: Not Applicable *COPY OF PRESCRIPTION DRUG MONITORING REPORT IN PATIENT FRIEDA: Not Applicable Prescriptions/Med Rec: oxyCODONE 5 mg PO Q4H PRN #40 tablet PRN Reason: Pain Home Medications: Home Meds Acetaminophen with Codeine [Acetaminophen-Cod #3] 2 each PO Q4HR PRN 06/26/20 [History] Albuterol Sulfate [Albuterol Sulfate Hfa] 1 - 2 puff IH Q4HR PRN 06/26/20 [History] Umeclidinium [place] [Incruse Ellipta*] 1 puff IH DAILY 06/26/20 [History] Metoprolol Tartrate [Lopressor] 25 mg PO BEDTIME 07/12/20 [History] oxyCODONE 5 mg PO Q4H PRN #40 tablet 07/13/20 [Rx] Patient Handouts: Oxycodone tablets or capsules, Lung Cancer Referrals: Jennifer Chaudhayr MD [Primary Care Provider] - (f/u at the end of the week - f/u pathology results and recheck back pain) - Discharge Summary/Plan Comment DC Time >30 min.: No - Patient Data Vitals - Most Recent: Last Vital Signs Temp 35.9 C L 07/13/20 11:34 Pulse 66 07/13/20 11:34 Resp 20 07/13/20 11:34 BP 108/75 07/13/20 11:34 Pulse Ox 98 07/13/20 11:34 Weight - Most Recent: 62 kg I&O - Last 24 hours: Intake & Output 07/12/20 07/13/20 07/13/20 22:59 06:59 14:59 Intake Total 860 1528 399 Balance 860 1528 399 Lab Results - Last 24 hrs: Laboratory Results - last 24 hr 07/12/20 07/13/20 07/13/20 Range/Units 15:28 05:47 05:47 WBC 8.2 (4.5-11.0) K/uL RBC 3.91 L (4.30-5.90) M/uL Hgb 11.1 L D (12.0-15.0) g/dL Hct 34.6 L (40.0-54.0) % MCV 89 (80-98) fL MCH 28 (27-31) pg MCHC 32 (32-36) % Plt Count 605 H (150-400) K/uL Sodium 137 L (140-148) mmol/L Potassium 3.0 L (3.6-5.2) mmol/L Chloride 99 L (100-108) mmol/L Carbon Dioxide 26 (21-32) mmol/L Anion Gap 15.0 H (5.0-14.0) mmol/L BUN 53 H D (7-18) mg/dL Creatinine 1.2 (0.8-1.3) mg/dL Est Cr Clr Drug Dosing 57.41 mL/min Estimated GFR (MDRD) > 60 (>60) Glucose 90 (74-106) mg/dL Calcium 8.7 D (8.5-10.1) mg/dL Influenza Type A RNA Negative (NEGATIVE) RSV RNA (INAAT) Negative (NEGATIVE) Influenza Type B RNA Negative (NEGATIVE) SARS-CoV-2 RNA (ALFRED) Negative (NEGATIVE) CHRIST Results - Last 24 hrs: Microbiology 07/13/20 10:47 DILSHAD Preparation - Final Other - Right Lower Lobe 07/13/20 10:47 Gram Stain - Final Bronchial Washings - Right Lower Lobe Med Orders - Current: Current Medications Acetaminophen (Acetaminophen 325 Mg Tab) 650 mg PO Q4H PRN PRN Reason: Headache/Fever Last Admin: 07/13/20 12:04 Dose: 650 mg Documented by: Albuterol (Albuterol 0.083% 2.5 Mg/3 Ml Neb Soln) 2.5 mg NEB Q4H PRN PRN Reason: Shortness Of Breath/wheezing Enoxaparin Sodium (Enoxaparin 40 Mg/0.4 Ml Syringe) 40 mg SUBCUT Q24H [facility] Last Admin: 07/12/20 15:37 Dose: 40 mg Documented by: Hydromorphone HCl (Hydromorphone 1 Mg/Ml Syringe) 1 mg IVPUSH Q2H PRN PRN Reason: Pain (severe 7-10) Last Admin: 07/13/20 10:30 Dose: 1 mg Documented by: Sodium Chloride (Normal Saline) 1,000 mls @ 125 mls/hr IV ASDIRECTED [facility] Last Admin: 07/13/20 06:49 Dose: 125 mls/hr Documented by: Ketorolac Tromethamine (Ketorolac 30 Mg/Ml Sdv) 30 mg IVPUSH Q6H PRN PRN Reason: Pain (moderate 4-6) Stop: 07/17/20 13:51 Lorazepam (Lorazepam 2 Mg/Ml Sdv) 0.5 mg IVPUSH Q4H PRN PRN Reason: Nausea/Vomiting Magnesium Hydroxide (Magnesium Hydroxide 400 Mg/5 Ml Susp 30 Ml Cup) 30 ml PO Q12H PRN PRN Reason: Constipation Melatonin (Melatonin 3 Mg Tab) 9 mg PO BEDTIME PRN PRN Reason: Sleep Metoprolol Tartrate (Metoprolol Tartrate 25 Mg Tab) 25 mg PO BEDTIME [facility] Last Admin: 07/12/20 20:52 Dose: 25 mg Documented by: Ondansetron HCl (Ondansetron 4 Mg/2 Ml Sdv) 4 mg IV Q6H PRN PRN Reason: Nausea/Vomiting Ondansetron HCl (Ondansetron 4 Mg Tab.Dis) 4 mg PO Q6H PRN PRN Reason: Nausea able to take PO Oxycodone HCl (Oxycodone 5 Mg Tab) 5 - 10 mg PO Q4H PRN PRN Reason: Pain Last Admin: 07/13/20 12:04 Dose: 10 mg Documented by: Potassium Chloride (Potassium Chloride 20 Meq Tab.Er) 40 meq PO BIDMEALS [facility] Last Admin: 07/13/20 10:42 Dose: Not Given Documented by: Senna/Docusate Sodium (Docusate Sodium/Sennosides 50-8.6 Mg Tab) 1 tab PO BID PRN PRN Reason: Constipation Tiotropium [place] (Tiotropium [place] 4 Gm Inhalation Jenera (2.5mcg/1 Dose; 10 Doses)) 0 gm INH DAILY@0700 [facility] Last Admin: 07/13/20 07:04 Dose: 4 gm Documented by: Discontinued Medications Fentanyl (Fentanyl 100 Mcg/2 Ml Sdv) Confirm Administered Dose 100 mcg .ROUTE .STK-MED ONE Stop: 07/13/20 08:34 Potassium Chloride 20 meq/ (Premix) 100 mls @ 50 mls/hr IV ONETIME ONE Stop: 07/13/20 08:23 Last Admin: 07/13/20 07:18 Dose: 50 mls/hr Documented by: Lidocaine (Lidocaine 4% Top Soln Lta 4 Ml Syringe Kit) Confirm Administered Dose 4 ml .ROUTE .STK-MED ONE Stop: 07/13/20 08:37 Lidocaine HCl (Lidocaine 1% 5 Ml Sdv) 2 ml INJECT ONETIME ONE Stop: 07/13/20 06:25 Last Admin: 07/13/20 07:19 Dose: 2 ml Documented by: Lidocaine HCl (Lidocaine 4% Top Soln 50 Ml Bottle) Confirm Administered Dose 50 ml .ROUTE .STK-MED ONE Stop: 07/13/20 08:27 Last Admin: 07/13/20 09:20 Dose: 50 ml Documented by: Midazolam HCl (Midazolam 1 Mg/Ml 2 Ml Sdv) Confirm Administered Dose 2 mg .ROUTE .STK-MED ONE Stop: 07/13/20 08:34 Propofol (Propofol 200 Mg/20 Ml Sdv) Confirm Administered Dose 200 mg .ROUTE .STK-MED ONE Stop: 07/13/20 08:34
--- NOTE | 2020-07-15 11:12 | OR ---
DATE OF PROCEDURE: 07/12/2020 SURGEON: Dima Thomas MD PROCEDURE: Bronchoscopy. FINDINGS: Thickening at the association of the right middle lobe and right mainstem bronchus. COMPLICATIONS: None. DIRECTOR OF STUDENT FINANCIAL SERVICES: None. PATHOLOGY: 1. Biopsies of area of thickening. 2. Bronchial washings from both right mainstem/ . INDICATIONS: A gentleman who is admitted to the facility with a thickening on the right mainstem around the association of the right middle lobe requiring biopsies for pathological purposes. RISKS: Risks, benefits, alternatives, and limitations including, but not limited to infection, bleeding, and aspiration pneumonia were all explained to the patient. Also discussed with the patient that the patient may require a second bronchoscopy with yarn sizer if they are unable to achieve a diagnosis here today. He understands these risks and wishes to proceed. He also understands that a yarn sizer is not available within this facility and will require transfer. I also discussed my experience with this procedure. PROCEDURE IN DETAIL: The patient was placed in supine position. Through the left naris, the bronchoscope was introduced into the left lung. Evaluating all lobes of the left lung, there was no abnormality. No mucus, no bleeding, no masses, no areas of concern. In the right lung at the junction of the right mainstem with the right middle lobe, there was an area of thickening consistent with PET scan evaluation. This was biopsied multiple times using cold biopsy forceps. Fluid was also collected for cell cytology. The patient had difficulty with respect to anesthesia as far as irritation not with desaturation or any other vital signs of concern. Nonetheless, multiple biopsies were taken. The remainder of the lung was inspected without abnormality. The patient tolerated the procedure well. Dima Thomas MD /[id number]
== END 2020-07-13 13:45 | disposition home or self-care (01) ==
LOC: JP.MS 12:50 → INTOOBSV 12:50
PROVIDERS: ADMIT Internal Medicine; ATTEND Internal Medicine
DX: C34.2 Malignant neoplasm of middle lobe, bronchus or lung (principal); C79.51 Secondary malignant neoplasm of bone; E87.1 Hypo-osmolality and hyponatremia; J44.9 Chronic obstructive pulmonary disease, unspecified; Z01.812 Encounter for preprocedural laboratory examination; Z20.822 Contact with and (suspected) exposure to COVID-19; Z87.891 Personal history of nicotine dependence; Z88.8 Allergy status to other drugs, medicaments and biological substances; Z79.899 Other long term (current) drug therapy; Z98.890 Other specified postprocedural states
CPT/HCPCS: 0241U; 31625; 36415; 80048; 85027; 87015; 87070; 87102; 87116; 87205; 87206; 87220; 88305; 88313; 88341; 88342; 94640; 96372; 96374; 99217; 99219; A9270; G0378; G0379; J1170; J1650; J2250; J2704; J3010; J3480; J7030

== ENCOUNTER 2020-10-08 11:25 | Observation (INO) | payer MEDICARE, MEDICAID ==
[2020-10-08] MEDS ORDERED: Albuterol 8 GM Inhaler INH PRN (12:27)
[2020-10-08] MEDS ORDERED: Albuterol 0.083% 2.5 MG/3 ML Neb Soln NEB PRN (12:28)
[2020-10-08] MEDS ORDERED: Acetaminophen 325 MG Tab PO PRN (12:28)
[2020-10-08] MEDS ORDERED: Polyethylene Glycol 3350 Powder 17 GM Packet PO PRN (12:28)
[2020-10-08] MEDS ORDERED: Ondansetron 4 MG Tab.DIS PO PRN (12:28)
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
[2020-10-08] MEDS: Morphine 10 MG/0.5 ML Oral Syringe PO PRN ×5 (12:54→22:13)
[2020-10-08] MEDS: Silver Sulfadiazine 1% Crm 50 GM Tube TOP SCH ×2 (14:35→21:03)
[2020-10-08] MEDS ORDERED: Morphine 10 MG/0.5 ML Oral Syringe PO PRN (17:01)
[2020-10-08] MEDS: Metoprolol Tartrate 25 MG Tab PO SCH (21:03)
[2020-10-09] MEDS: Morphine 10 MG/0.5 ML Oral Syringe PO PRN ×21 (00:25→23:59)
[2020-10-09] MEDS: LORazepam ORAL Concentrate 1MG/0.5ML U/D PO PRN ×10 (01:24→22:05)
[2020-10-09] MEDS: Silver Sulfadiazine 1% Crm 50 GM Tube TOP SCH ×2 (08:49→21:05)
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
[2020-10-09] MEDS ORDERED: Methadone 5 MG Tab PO SCH (12:00)
[2020-10-09] MEDS: Methadone Oral Concentrate 10 MG/1 ML U/D Cup PO SCH ×2 (13:02→20:05)
[2020-10-09] MEDS: Metoprolol Tartrate 25 MG Tab PO SCH (21:09)
[2020-10-10] MEDS: Morphine 10 MG/0.5 ML Oral Syringe PO PRN ×8 (01:02→15:01)
[2020-10-10] MEDS: LORazepam ORAL Concentrate 1MG/0.5ML U/D PO PRN ×5 (01:57→13:38)
[2020-10-10] MEDS: Methadone Oral Concentrate 10 MG/1 ML U/D Cup PO SCH ×2 (04:23→11:36)
[2020-10-10 07:47] VITALS: BP 111/70; PULSE 110
[2020-10-10] MEDS: Silver Sulfadiazine 1% Crm 50 GM Tube TOP SCH (10:13)
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
[2020-10-11] MEDS ORDERED: UMECLIDINIUM 62.5 MCG INH SCH (07:00)
== END 2020-10-10 15:50 | disposition hospice, home (50) ==
LOC: JP.MS 11:25
PROVIDERS: ADMIT Internal Medicine; ATTEND Hospitalist
DX: C34.91 Malignant neoplasm of unspecified part of right bronchus or lung (principal); C79.51 Secondary malignant neoplasm of bone; T20.20XA Burn of second degree of head, face, and neck, unspecified site, initial encounter; Z88.8 Allergy status to other drugs, medicaments and biological substances; Z79.899 Other long term (current) drug therapy; Z98.890 Other specified postprocedural states
CPT/HCPCS: A9270; G0378